=== PATIENT | female | born 1985 | race Caucasian/White ===

== ENCOUNTER 2019-01-26 22:31 | Emergency (ER) | payer SELFPAY ==
[2019-01-26] MEDS ORDERED: RINGERS SOLUTION,LACTATED 1,000 ML IV ONE (22:59)
--- NOTE | 2019-01-26 22:59 | ER Document Report ---
ED General - General Chief Complaint: Overdose Stated Complaint: POSSIBLE OVERDOSE Time Seen by Provider: 01/26/19 22:56 Notes: Patient is a 33-year-old female with history of depression that presents to the emergency department for chief complaint of intentional overdose of trazodone. Patient presents by EMS, after being found, with presumed overdose of trazodone, patient is somnolent, not answering questions all that well at this time, she nods her head yes when asked if she did this on purpose. No other significant history available at this time. Patient shakes her head no when asked if she has any pain. Past Medical History: Depression Past Surgical History: Not obtainable at this time secondary to patient's current mental state Social History: Not obtainable at this time, will inquire if family was at bedside. Family History: Reviewed and noncontributory for presenting illness Allergies: Reviewed, see documented allergy list. REVIEW OF SYSTEMS: Review of systems is not obtainable at this time secondary to the patient's altered mental status. PHYSICAL EXAMINATION: Vital signs reviewed, nursing noted reviewed. GENERAL: Patient, moving all extremities, GCS 14 HEAD: Atraumatic, normocephalic. EYES: Eyes appear normal, extraocular movements intact, sclera anicteric, conjunctiva are normal. PERRLA, pupils are rather constricted ENT: nares patent, oropharynx clear without exudates. Moist mucous membranes. NECK: Normal range of motion, supple without lymphadenopathy LUNGS: Breath sounds clear to auscultation bilaterally and equal. No wheezes rales or rhonchi. HEART: Regular rate and rhythm without murmurs ABDOMEN: Soft, nontender, normoactive bowel sounds. No rebound, guarding, or rigidity. No masses appreciated. EXTREMITIES: Nontender, good range of motion, no pitting or edema. NEUROLOGICAL: GCS 14, no focal neurological deficits. Moves all extremities spontaneously Motor and sensory grossly intact on exam. PSYCH: Normal mood, normal affect. SKIN: Warm, Dry, normal turgor, no rashes or lesions noted on exposed skin TRAVEL OUTSIDE OF THE [place] IN LAST 30 DAYS: No - Related Data Allergies/Adverse Reactions: No Known Allergies Allergy (Unverified 01/26/19 23:43) Past Medical History - Social History Smoking Status: Current Every Day Smoker Family History: Reviewed & Not Pertinent Physical Exam - Vital signs Vitals: Temp Pulse Resp BP Pulse Ox 98.1 F 97 12 108/70 97 01/26/19 22:43 01/26/19 22:43 01/26/19 22:43 01/26/19 22:43 01/26/19 22:43 Course - Re-evaluation Re-evalutation: Patient seen and examined, vital signs reviewed. Patient somnolent on exam, initial GCS 14, on reevaluation patient was more awake, but still somnolent, did take unknown number of trazodone tablets, her EKG demonstrated a mildly prolonged QTC, but not greater than 500, patient was monitored on telemetry. Patient is not demonstrating any signs of any particular toxidrome, she was given a dose of Narcan 0.4 mg, which did not have effect, therefore this was not pursued further with any further dosage and. Medical screening testing was ordered including bloodwork, EKG, and toxicology. Results of testing were reviewed. Testing demonstrated unremarkable blood work, negative serum toxicology, urine tox was positive for amphetamines, but negative otherwise. Patient has been stable from a hemodynamic standpoint. At this point I feel that the patient is medically cleared and can be further evaluated from a psychiatric standpoint for final disposition from the emergency department. Patient updated on plan of care. Laboratory 01/26/19 01/26/19 01/26/19 23:02 23:02 23:02 WBC 6.6 RBC 4.83 Hgb 14.4 Hct 42.2 MCV 87 MCH 29.8 MCHC 34.1 RDW 14.0 Plt Count 275 Seg Neutrophils % 72.4 Lymphocytes % 20.1 Monocytes % 5.9 Eosinophils % 1.2 Basophils % 0.4 Absolute Neutrophils 4.8 Absolute Lymphocytes 1.3 Absolute Monocytes 0.4 Absolute Eosinophils 0.1 Absolute Basophils 0.0 Sodium 137.8 Potassium 4.1 Chloride 104 Carbon Dioxide 23 Anion Gap 11 BUN 22 H Creatinine 0.92 Est GFR ( Amer) > 60 Est GFR (Non-Af Amer) > 60 Glucose 143 H Calcium 9.6 Total Bilirubin 0.2 Direct Bilirubin 0.2 Neonat Total Bilirubin Not Reportable Neonat Direct Bilirubin Not Reportable Neonat Indirect Bili Not Reportable AST 21 ALT 17 Alkaline Phosphatase 107 Total Protein 7.6 Albumin 4.3 Serum HCG, Qual NEGATIVE Salicylates < 1.0 L Acetaminophen < 10 L Serum Alcohol < 10 01/27/19 06:01 - Vital Signs Vital signs: Temp Pulse Resp BP Pulse Ox 98 F 97 17 93/58 L 95 01/26/19 23:24 01/26/19 22:43 01/27/19 05:00 01/27/19 04:03 01/27/19 05:00 - Laboratory Result Diagrams: 01/26/19 23:02 01/26/19 23:02 Laboratory results interpreted by me: 01/26/19 01/27/19 23:02 05:12 BUN 22 H Glucose 143 H Ur Leukocyte Esterase TRACE H Salicylates < 1.0 L Acetaminophen < 10 L - EKG Interpretation by Me Additional EKG results interpreted by me: EKG demonstrates sinus rhythm with a ventricular rate of 70 bpm, normal axis, Q TC 4 and 79 ms, slightly prolonged, no ST elevation, no prior for comparison. Discharge - Discharge Clinical Impression: Suicide attempt Intentional drug overdose Qualifiers: Encounter type: initial encounter Qualified Code(s): T50.902A - Poisoning by unspecified drugs, medicaments and biological substances, intentional self-harm, initial encounter Condition: Stable Disposition: PSYCH HOSP/UNIT
[2019-01-26] MEDS ORDERED: NALOXONE HCL INJ/PF 0.4 MG/1 ML SDV IV ONE (23:06)
[2019-01-26] MEDS ORDERED: NALOXONE HCL INJ/PF 0.4 MG/1 ML SDV ONE (23:06)
[2019-01-26 23:18] LABS: ABSOLUTE EOSINOPHILS # (AUTO) 0.1 10^3/uL (0.0-0.6); ABSOLUTE LYMPHOCYTES (AUTO) 1.3 10^3/uL (0.5-4.7); ABSOLUTE MONOCYTES (AUTO) 0.4 10^3/uL (0.1-1.4); ABSOLUTE NEUT (AUTO) 4.8 10^3/uL (1.7-8.2); BASOPHILS % (AUTO) 0.4 % (0-2); EOSINOPHILS % (AUTO) 1.2 % (0-6); HEMATOCRIT 42.2 % (36.0-47.0); HEMOGLOBIN 14.4 g/dL (12.0-15.5); LYMPHOCYTES % (AUTO) 20.1 % (13-45); MEAN CORPUSCULAR HEMOGLOBIN 29.8 pg (27.0-33.4); MEAN CORPUSCULAR HGB CONC 34.1 g/dL (32.0-36.0); MEAN CORPUSCULAR VOLUME 87 fl (80-97); MONOCYTES % (AUTO) 5.9 % (3-13); PLATELET COUNT 275 10^3/uL (150-450); RED BLOOD COUNT 4.83 10^6/uL (3.72-5.28); SEGMENTED NEUTROPHILS % (AUTO) 72.4 % (42-78); TOTAL CELLS COUNTED % (AUTO) 100 %; WHITE BLOOD COUNT 6.6 10^3/uL (4.0-10.5)
[2019-01-26 23:29] LABS: ALANINE AMINOTRANSFERASE 17 U/L (9-52); ALBUMIN 4.3 g/dL (3.5-5.0); ALKALINE PHOSPHATASE 107 U/L (38-126); ANION GAP 11 (5-19); ASPARTATE AMINO TRANSFERASE 21 U/L (14-36); BILIRUBIN,DIRECT 0.2 mg/dL (0.0-0.4); BILIRUBIN,TOTAL 0.2 mg/dL (0.2-1.3); BLOOD UREA NITROGEN 22 mg/dL (7-20); CALCIUM 9.6 mg/dL (8.4-10.2); CARBON DIOXIDE 23 mmol/L (22-30); CHLORIDE 104 mmol/L (98-107); GLUCOSE 143 mg/dL (75-110); POTASSIUM 4.1 mmol/L (3.6-5.0); SODIUM 137.8 mmol/L (137-145); TOTAL PROTEIN 7.6 g/dL (6.3-8.2)
[2019-01-26 23:36] LABS: ACETAMINOPHEN < 10 ug/mL (10-30); ALCOHOL < 10 mg/dL (NONE DETECTED); SALICYLATE < 1.0 mg/dL (2.0-20.0)
[2019-01-27] MEDS ORDERED: NORMAL SALINE 1000 ML 1,000 ML IV ONE (04:57)
[2019-01-27 05:30] LABS: APPEARANCE,URINE CLEAR; BILIRUBIN,URINE NEGATIVE (NEGATIVE); COLOR,URINE YELLOW; GLUCOSE, URINE NEGATIVE (NEGATIVE); KETONES,URINE NEGATIVE (NEGATIVE); LEUKOCYTE ESTERASE,URINE TRACE (NEGATIVE); NITRITE,URINE NEGATIVE (NEGATIVE); PROTEIN,URINE NEGATIVE (NEGATIVE); URINE SPECIFIC GRAVITY 1.016; UROBILINOGEN,URINE NEGATIVE mg/dL (<2.0)
[2019-01-27 05:55] LABS: URINE AMPHETAMINES SCREEN UNCONFIRMED POSITIVE; URINE BARBITURATES SCREEN NEGATIVE; URINE BENZODIAZEPINES SCREEN NEGATIVE; URINE COCAINE SCREEN NEGATIVE; URINE MARIJUANA (THC) SCREEN NEGATIVE; URINE METHADONE SCREEN NEGATIVE; URINE PHENCYCLIDINE SCREEN NEGATIVE
--- NOTE | 2019-01-27 09:54 | EKG REPORT ---
SEVERITY:- BORDERLINE ECG - SINUS RHYTHM BORDERLINE T ABNORMALITIES, INFERIOR LEADS BORDERLINE PROLONGED QT INTERVAL : Confirmed by: Bin Hennessy 27-Jan-2019 09:53:49
--- NOTE | 2019-01-27 10:37 | ER Document Report ---
Doctor's Note Notes: 01/27/19 10:35 Rounds: Chart reviewed and patient interviewed. Patient is still rather sleepy, but awakens to tactile stimulation and voice command. Knows her name and where she is. Patient is being evaluated for an overdose of trazodone. She supposedly is suicidal. Vital signs were normal except for blood pressures of 93/58 about 4 AM and then a repeat of 92/51 at 8:06 AM. I am going to give the patient a couple liters of saline IV. Lab studies were essentially normal except for positive amphetamines on her drug screen. Dieter Fraga MD
[2019-01-27] MEDS: NORMAL SALINE 1000 ML 1,000 ML IV PRN ×2 (10:57→10:58)
--- NOTE | 2019-01-27 11:52 | PSYCHOLOGICAL NOTE ---
Psych Note - Psych Note Date seen by psych provider: 01/27/19 Time seen by psych provider: 07:20 Psych Note: Reason for Consult: intentional overdose Patient is a 33-year-old female with history of depression that presents to the emergency department for chief complaint of intentional overdose of trazodone. Upon entering the room patient is notably very difficult to awaken. She is able to state that she "do not remember" on how she arrived or why she is at the [facility]. Patient was reminded that she arrived because she took too much medication at which point the patient confirms remembering this by nodding her head. Patient was asked if she intentionally took the medication at which point the patient stated "ya." Patient was asked if she had ever done this previous but did not respond. When asked why the patient took too much of her medication she stated "depression." Patient does not further engage with clinician. 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 Patient will be transported to [facility] for further treatment. Patient has been accepted by Dr. Sumanth Damon MD transportation has been requested
[2019-01-27 15:11] VITALS: BP 95/60
== END 2019-01-27 14:20 ==
LOC: ER 22:31
DX: T43.212A Poisoning by selective serotonin and norepinephrine reuptake inhibitors, intentional self-harm, initial encounter (principal); F32.9 Major depressive disorder, single episode, unspecified; F17.200 Nicotine dependence, unspecified, uncomplicated; X58.XXXA Exposure to other specified factors, initial encounter
CPT/HCPCS: 93005; 99285; 96361; 96374; 36415; 80307 ×4; 84703; 85025; 80053; 81001; 93010; J2310; J7030; J7120